=== PATIENT | female | born 1965 | race Two or more races ===

== ENCOUNTER → 2024-12-06 | Outpatient (CLI) | payer MEDICARE, MEDICAID, SELFPAY ==
--- NOTE | 2024-12-06 10:15 | XR_ITS ---
Examination: Screening digital mammography, bilateral Computer aided detection 3-D breast Tomosynthesis, bilateral Date and time of exam: December 06, 2019 5:10 AM Compared to mammograms dating to February 27, 2015 Indication: Screening Technique: Nonmagnified MLO, CC views of the breasts to been obtained, reconstructed from 3-D Tomosynthesis images. R2 computer aided detection program utilized for evaluation of suspicious masses and/or abnormal calcifications. 3-D Tomosynthesis images obtained. Findings: Scattered areas of fibroglandular density Benign calcifications. Skin lesions left breast No interval suspicious masses Impression: BI-RADS category II: Benign Findings. Recommend 1 year follow-up mammogram.
== END | disposition home or self-care (01) ==
PROVIDERS: PCP Physician Assistant; Referring Provider Physician Assistant; Visit Provider Physician Assistant
DX: Z12.31 Encounter for screening mammogram for malignant neoplasm of breast (principal); R92.323 Mammographic fibroglandular density, bilateral breasts; R92.1 Mammographic calcification found on diagnostic imaging of breast
CPT/HCPCS: 77063; 77067

== ENCOUNTER 2025-05-20 09:40 | Day surgery (SDC) | payer MEDICARE, MEDICAID, SELFPAY ==
--- NOTE | 2025-05-15 07:00 | EKG_ITS ---
[facility] Test Date: 2025-05-15 Pat Name: MARISSA GROSSMAN Department: Room: - Gender: Female [employer]: ESTER : 1965 Requested By: Yohana Thompson Order Number: [id number] Reading MD: Yohana Thompson Measurements Intervals [place] Rate: 62 P: 43 NM: 178 QRS: 15 QRSD: 96 T: 47 QT: 394 QTc: 402 Interpretive Statements SINUS RHYTHM INCOMPLETE RIGHT BUNDLE BRANCH BLOCK [90+ ms QRS DURATION, TERMINAL R IN V1/V2, 40+ ms S IN I/aVL/V4/V5/V6] No previous ECG available for comparison /store/S0/[id number].pdf
[2025-05-15 07:50] VITALS: BMI 34.7
[2025-05-15 09:58] LABS: Basophils # (Auto) 0.1 Thou/mm3 (0.0-0.2); Basophils % (Auto) 1 % (0-2.5); Eosinophils # (Auto) 0.4 Thou/mm3 (0.0-0.5); Eosinophils % (Auto) 4 % (0-10); Hematocrit 45.7 % (36.0-46.0); Hemoglobin 15.3 g/dL (12.0-16.0); Immature Granulocytes Auto 0.02 Thou/mm3 (0.00-0.00); Lymphocytes # (Auto) 4.2 Thou/mm3 (1.0-4.8); Lymphocytes % (Auto) 47 % (10-50); Mean Corpuscular HGB Conc 33.5 g/dl (31.0-37.0); Mean Corpuscular Hemoglobin 30.4 pg (25.0-35.0); Mean Corpuscular Volume 91 fL (80-100); Monocytes # (Auto) 1.1 Thou/mm3 (0.0-0.8); Monocytes % (Auto) 12 % (0-12); Neutrophils # (Auto) 3.2 Thou/mm3 (1.8-7.7); Neutrophils % (Auto) 36 % (37-80); Nucleated Red Blood Cell # 0.00 Thou/mm3 (0.00-0.00); Nucleated Red Blood Cell % 0 /100 WBC (0); Platelet Count 269 Thou/mm3 (140-440); RDW Standard Deviation 43.8 fL (36.4-46.3); Red Blood Count 5.04 Miln/mm3 (4.00-5.20); White Blood Count 8.9 Thou/mm3 (3.6-11.0)
[2025-05-15 10:09] LABS: Alanine Aminotransferase 22 U/L (10-49); Albumin, Serum 4.2 gm/dL (3.5-5.0); Albumin/Globulin Ratio 1.2 (1.2-2.2); Alkaline Phosphatase 98 U/L (46-116); Anion Gap 5 (7-16); Aspartate Amino Transferase 25 U/L (0-34); BUN/Creatinine Ratio 21 Ratio (12-20); Bilirubin,Total 0.8 mg/dL (0.3-1.2); Blood Urea Nitrogen 15 mg/dL (9-23); Calcium 8.9 mg/dL (8.3-10.6); Calcium (Corrected) 8.9 mg/dL (8.5-10.1); Carbon Dioxide 27.7 mMol/L (20.0-31.0); Chloride 107 mMol/L (98-107); Creatinine (Component) 0.7 mg/dL (0.6-1.3); Estimated Creatinine Clearance 81.3 mL/min (>60); Globulin 3.4 gm/dL (2.3-3.5); Glucose 96 mg/dL (74-106); Osmolality,Calculated 280 (275-295); Potassium 4.1 mMol/L (3.4-5.1); Sodium 140 mMol/L (136-145); Total Protein 7.6 gm/dL (5.7-8.2); eGFR > 60 See Note
[2025-05-20] VITALS (8 sets, daily range): BP systolic 110–149; BP diastolic 80–101; PULSE 64–73; RESP 13–20; TEMP 36.1–36.4; O2SAT 95–100; BMI 34.5
--- NOTE | 2025-05-20 11:09 | ESOP_ITS ---
Date of Procedure 05/20/25 Pre Op Diagnosis Left shoulder soft tissue mass Post Op Diagnosis Left shoulder subcutaneous soft tissue mass Procedure Excision of large subcutaneous soft tissue mass from left shoulder Findings An approximately 10 cm lipomatous mass in the subcutaneous soft tissue of anterior left shoulder Procedure Description Patient brought into the operating room in supine position. After administration of general tracheal anesthesia, patient's left shoulder prepped and draped in standard surgical manner. She was noted to have a large soft tissue mass on the anterior surface of the left shoulder. After administration of local anesthesia an approximately 12 cm elliptical incision was made and dissection was deepened into soft tissue. The underlying mass was circumferentially dissected out surrounding tissue and excised. The mass was measuring to be approximately 10 cm in diameter, lipomatous in nature. The w ound was washed and irrigated and hemostasis achieved using electrocautery. Subcutaneous tissue closed with interrupted sutures using 2-0 Vicryl and incision was closed with 4-0 Monocryl in subcuticular fashion. Dermabond and pressure dressings applied. Patient tolerated procedure well. She was extubated, breathing spontaneously and without difficulty and was transferred to postanesthesia care in stable condition. Instruments, needles and sponge counts were reported to be correct x 2. Anesthesia GETA and local Pathology / specimen Other (Left shoulder soft tissue mass) Estimated Blood Loss 5 Condition Stable Disposition PACU Surgeon Yohana Thompson MD Surgical Staff Operation Date: 05/20/25 12:00 <No data on this case meets the specified criteria>
--- NOTE | 2025-05-20 11:13 | SUR.PHASEI ---
1113 Patient arrived to recovery resting comfortably in place, breathing unlabored, vital signs stable, dressing intact to left shoulder, sutures, dermabond, gauze, medipore tape, no bleeding noted, report received from Beto GARCIA and Patrice GARZA
--- NOTE | 2025-05-20 12:02 | SUR.PHASEII ---
1202 Report given to Silvia English RN
--- NOTE | 2025-05-20 12:24 | SUR.PHASEII ---
1202: pt awake, alert, able to follow commands, breathing unlabored, dressing to left shoulder clean, dry, and intact, VS stable, bilateral radial pulses present/strong/equal, circulation to fingers WNL, report from Silvia Gutierrez RN 1208: discharge instructions given with in house cafeteria manager Carisa, all questions answered, pt and pt son Ankit verbalize understanding of discharge instructions 1224: pt able to dress self and ambulate to wheelchair with steady gait, pt discharged via wheelchair with all belongings and copies of discharge paperwork
== END 2025-05-20 12:24 | disposition home or self-care (01) ==
PROVIDERS: Anesthesiology; PCP Physician Assistant; Referring Provider Surgery; Visit Provider Surgery
PROC: (CPT 23071; principal; 2025-05-20 11:45)
DX: D17.22 Benign lipomatous neoplasm of skin and subcutaneous tissue of left arm (principal); Z01.810 Encounter for preprocedural cardiovascular examination; I45.10 Unspecified right bundle-branch block; M19.90 Unspecified osteoarthritis, unspecified site; F32.A Depression, unspecified; I10 Essential (primary) hypertension
CPT/HCPCS: 23071; 36415; 80048; 80053; 85025; 93005; A4217; A4649; J0131; J0690; J1100; J1885; J2405; J2704; J3010; J3490; J1596